=== PATIENT | male | born 1930 | race Caucasian/White ===

== ENCOUNTER 2016-05-12 11:16 | Outpatient (CLI) | payer MEDICARE | END 2016-05-12 23:59 | disposition home or self-care (01) | LOC: RAD 11:16 | PROVIDERS: ATTEND Legal Medicine | DX: J98.11 Atelectasis (principal); I70.0 Atherosclerosis of aorta | CPT/HCPCS: 71010-TC ==

== ENCOUNTER 2016-05-20 18:11 | Inpatient (IN) | payer MEDICARE ==
[~2016-05-20] VITALS: Ht 175.3 cm; Wt 65.8 kg
[2016-05-20 19:24] LABS: BASOPHILS % (AUTO) 0.2 % (0.0-2.0); DIFF TOTAL % 100 %; EOSINOPHILS # (AUTO) 0.1 /CMM (0.0-0.7); EOSINOPHILS % (AUTO) 1.7 % (0.0-6.0); HEMATOCRIT 36 % (39-51); HEMOGLOBIN 11.8 g/dL (13.5-17.5); LYMPHOCYTES # (AUTO) 1.5 /CMM (0.8-4.8); LYMPHOCYTES % (AUTO) 25.9 % (20.0-44.0); MEAN CORPUSCULAR HEMOGLOBIN 28 PG (26.0-33.0); MEAN CORPUSCULAR HGB CONC 33 g/dl (31.0-36.0); MEAN CORPUSCULAR VOLUME 85 fL (80-96); MONOCYTES # (AUTO) 0.5 /CMM (0.1-1.30); NEUTROPHILS # (AUTO) 3.8 /CMM (1.8-8.9); NEUTROPHILS % (AUTO) 63.2 % (43.0-81.0); PLATELET COUNT (AUTO) 179 /CMM (150-450); RED BLOOD CELL COUNT(AUTO) 4.23 MIL/uL (4.5-6.0); WHITE BLOOD COUNT (AUTO) 5.9 K/uL (4.3-11.0)
[2016-05-20 19:32] LABS: ANION GAP 10 (5-14); CALCIUM, SERUM 9.3 mg/dL (8.5-10.1); CARBON DIOXIDE 31 mmol/L (21-32); CHLORIDE 107 mmol/L (98-107); CREATININE 2.8 mg/dL (0.6-1.3); POTASSIUM 4.4 mmol/L (3.5-5.1); SODIUM SERUM 143 mmol/L (136-145); UREA NITROGEN, BLOOD 9 mg/dL (7-18)
[2016-05-20 19:34] LABS: GLUCOSE 96 mg/dL (74-106)
[2016-05-20 19:37] LABS: ALANINE AMINOTRANSFERASE 11 U/L (12-78); ALBUMIN 3.3 g/dL (3.4-5.0); ASPARTATE AMINOTRANSFERASE 17 U/L (15-37); BILIRUBIN,DIRECT 0.1 mg/dL (0.0-0.2); BILIRUBIN,TOTAL 0.4 mg/dL (0.2-1.0); INDIRECT BILIRUBIN 0.3 mg/dL (0.0-1.1); TOTAL PROTEIN, SERUM 6.4 g/dL (6.4-8.2)
[2016-05-20 19:38] LABS: ACETAMINOPHEN 0 ug/ml (10-30); SALICYLATE 1.4 mg/dL (2.8-20.0)
[2016-05-20] MEDS ORDERED: LORA0.5T PO (20:59)
[2016-05-20] MEDS ORDERED: OLAN5TAB3 PO (20:59)
[2016-05-20] MEDS ORDERED: QUET25TA PO (20:59)
[2016-05-20] MEDS ORDERED: TEMA15CA PO (20:59)
[2016-05-20 22:00] VITALS: BP 121/67
[2016-05-20 22:20] VITALS: BP 121/67
[2016-05-20] MEDS ORDERED: CLONIDINE HCL 0.1 MG TABLET PO PRN (23:00)
[2016-05-20] MEDS ORDERED: ONDANSETRON HCL/PF 4 MG/2 ML VIAL IV PRN (23:00)
[2016-05-20] MEDS: LEVOFLOXACIN 250 MG /D5W 50 ML 250 MG in PREMIX 1 EA IV SCH (23:00)
[2016-05-20] MEDS ORDERED: OLANZAPINE 5 MG TABLET PO SCH (23:00)
[2016-05-21] MEDS ORDERED: OLANZAPINE 5 MG TABLET ONE (01:24)
[2016-05-21] MEDS ORDERED: LEVOFLOXACIN 250 MG /D5W 50 ML 50 ML IV ONE (01:29)
[2016-05-21] MEDS ORDERED: IV SET PRIMARY PUMP SET 1 EA INFUS.SET MC ONE (01:34)
[2016-05-21] MEDS ORDERED: IV NS 0.9% 250 ML IV ONE (01:34)
[2016-05-21] MEDS ORDERED: SECONDARY IV SET 1 EA INFUS.SET MC ONE (01:34)
[2016-05-21] MEDS ORDERED: LORAZEPAM INJ 2 MG/ML VIAL ONE (03:13)
[2016-05-21] MEDS: LORAZEPAM INJ 2 MG/ML VIAL IV PRN ×3 (03:22→22:04)
[2016-05-21] MEDS ORDERED: METO25TA20 PO (07:26)
[2016-05-21 08:00] VITALS: BP 98/55
[2016-05-21 08:05] LABS: BASOPHILS % (AUTO) 0.3 % (0.0-2.0); DIFF TOTAL % 100 %; EOSINOPHILS # (AUTO) 0.1 /CMM (0.0-0.7); EOSINOPHILS % (AUTO) 1.2 % (0.0-6.0); HEMATOCRIT 38 % (39-51); HEMOGLOBIN 12.2 g/dL (13.5-17.5); LYMPHOCYTES # (AUTO) 1.1 /CMM (0.8-4.8); LYMPHOCYTES % (AUTO) 16.5 % (20.0-44.0); MEAN CORPUSCULAR HEMOGLOBIN 27 PG (26.0-33.0); MEAN CORPUSCULAR HGB CONC 32 g/dl (31.0-36.0); MEAN CORPUSCULAR VOLUME 86 fL (80-96); MONOCYTES # (AUTO) 0.7 /CMM (0.1-1.30); MONOCYTES % (AUTO) 9.8 % (2.0-12.0); NEUTROPHILS % (AUTO) 72.2 % (43.0-81.0); PLATELET COUNT (AUTO) 198 /CMM (150-450); RED BLOOD CELL COUNT(AUTO) 4.46 MIL/uL (4.5-6.0); WHITE BLOOD COUNT (AUTO) 6.9 K/uL (4.3-11.0)
[2016-05-21] MEDS: PANTOPRAZOLE 40 MG TABLET.DR PO SCH (08:13)
[2016-05-21] MEDS: ASPIRIN 81 MG TAB.CHEW PO SCH (08:13)
[2016-05-21 08:17] LABS: ANION GAP 13 (5-14); CALCIUM, SERUM 9.6 mg/dL (8.5-10.1); CARBON DIOXIDE 28 mmol/L (21-32); CHLORIDE 107 mmol/L (98-107); CREATININE 3.8 mg/dL (0.6-1.3); GLUCOSE 107 mg/dL (74-106); POTASSIUM 4.7 mmol/L (3.5-5.1); SODIUM SERUM 143 mmol/L (136-145); UREA NITROGEN, BLOOD 15 mg/dL (7-18)
[2016-05-21] MEDS: QUETIAPINE FUMARATE 25 MG TABLET PO SCH ×2 (08:45→17:19)
[2016-05-21] MEDS ORDERED: QUETIAPINE FUMARATE 25 MG TABLET PO SCH (09:00)
[2016-05-21] MEDS ORDERED: LORAZEPAM 0.5 MG TABLET PO PRN (09:00)
[2016-05-21] MEDS: TEMAZEPAM 15 MG CAPSULE PO SCH ×3 (10:06→22:00)
[2016-05-21] MEDS: METOPROLOL TARTRATE 25 MG TABLET PO SCH (10:07)
[2016-05-21 16:00] VITALS: BP 121/65
[2016-05-21 20:00] VITALS: BP 155/96
[2016-05-21 21:20] VITALS: BP_SYST 110; BP_SYST 155; BP_DIAS 48; BP_DIAS 96
[2016-05-21] MEDS: LEVOFLOXACIN 250 MG /D5W 50 ML 250 MG in PREMIX 1 EA IV SCH (21:54)
[2016-05-21] MEDS: OLANZAPINE 5 MG TABLET PO SCH ×2 (21:54→22:00)
[2016-05-21] MEDS ORDERED: TEMAZEPAM 15 MG CAPSULE PO SCH (22:00)
[2016-05-22 08:00] VITALS: BP 104/58
[2016-05-22] MEDS: METOPROLOL TARTRATE 25 MG TABLET PO SCH (08:23)
[2016-05-22] MEDS: PANTOPRAZOLE 40 MG TABLET.DR PO SCH (08:23)
[2016-05-22] MEDS: QUETIAPINE FUMARATE 25 MG TABLET PO SCH ×2 (08:23→17:39)
[2016-05-22] MEDS: ASPIRIN 81 MG TAB.CHEW PO SCH (08:23)
[2016-05-22] MEDS: LORAZEPAM INJ 2 MG/ML VIAL IV PRN ×2 (14:22→21:26)
[2016-05-22 16:00] VITALS: BP 120/68
[2016-05-22 20:00] VITALS: BP 130/72
[2016-05-22] MEDS: TEMAZEPAM 15 MG CAPSULE PO SCH (21:10)
[2016-05-22] MEDS: OLANZAPINE 5 MG TABLET PO SCH (21:43)
[2016-05-22] MEDS ORDERED: IV SET PRIMARY PUMP SET 1 EA INFUS.SET MC ONE (23:14)
[2016-05-22] MEDS: LEVOFLOXACIN 250 MG /D5W 50 ML 250 MG in PREMIX 1 EA IV SCH (23:29)
[2016-05-23 08:00] VITALS: BP 109/53
[2016-05-23] MEDS: PANTOPRAZOLE 40 MG TABLET.DR PO SCH (08:16)
[2016-05-23] MEDS: QUETIAPINE FUMARATE 25 MG TABLET PO SCH ×2 (08:16→16:18)
[2016-05-23] MEDS: ASPIRIN 81 MG TAB.CHEW PO SCH (08:16)
[2016-05-23] MEDS: METOPROLOL TARTRATE 25 MG TABLET PO SCH (08:24)
[2016-05-23 16:00] VITALS: BP 119/58
[2016-05-23] MEDS ORDERED: QUETIAPINE FUMARATE 25 MG TABLET PO PRN (18:30)
[2016-05-23 19:34] VITALS: BP 104/66
[2016-05-23] MEDS: TEMAZEPAM 15 MG CAPSULE PO SCH (21:36)
[2016-05-23] MEDS: OLANZAPINE 5 MG TABLET PO SCH (21:36)
[2016-05-23] MEDS: LEVOFLOXACIN 250 MG /D5W 50 ML 250 MG in PREMIX 1 EA IV SCH (23:03)
[2016-05-24 06:43] LABS: BASOPHILS % (AUTO) 0.4 % (0.0-2.0); DIFF TOTAL % 100 %; EOSINOPHILS # (AUTO) 0.1 /CMM (0.0-0.7); EOSINOPHILS % (AUTO) 1.4 % (0.0-6.0); HEMATOCRIT 37 % (39-51); LYMPHOCYTES # (AUTO) 1.3 /CMM (0.8-4.8); LYMPHOCYTES % (AUTO) 19.8 % (20.0-44.0); MEAN CORPUSCULAR HEMOGLOBIN 27 PG (26.0-33.0); MEAN CORPUSCULAR HGB CONC 32 g/dl (31.0-36.0); MEAN CORPUSCULAR VOLUME 85 fL (80-96); MONOCYTES % (AUTO) 14.8 % (2.0-12.0); NEUTROPHILS # (AUTO) 4.3 /CMM (1.8-8.9); NEUTROPHILS % (AUTO) 63.6 % (43.0-81.0); PLATELET COUNT (AUTO) 196 /CMM (150-450); RED BLOOD CELL COUNT(AUTO) 4.37 MIL/uL (4.5-6.0); WHITE BLOOD COUNT (AUTO) 6.8 K/uL (4.3-11.0)
[2016-05-24 06:58] LABS: CALCIUM, SERUM 9.3 mg/dL (8.5-10.1); CREATININE 6.5 mg/dL (0.6-1.3); PHOSPHORUS 5.3 mg/dL (2.5-4.9); POTASSIUM 4.7 mmol/L (3.5-5.1)
[2016-05-24 08:00] VITALS: BP 126/63
[2016-05-24] MEDS: PANTOPRAZOLE 40 MG TABLET.DR PO SCH (08:31)
[2016-05-24] MEDS: QUETIAPINE FUMARATE 25 MG TABLET PO SCH ×2 (08:31→17:13)
[2016-05-24] MEDS: METOPROLOL TARTRATE 25 MG TABLET PO SCH (08:31)
[2016-05-24] MEDS: ASPIRIN 81 MG TAB.CHEW PO SCH (08:31)
[2016-05-24 16:00] VITALS: BP 151/68
[2016-05-24 19:00] VITALS: BP 125/67
[2016-05-24] MEDS: OLANZAPINE 5 MG TABLET PO SCH (22:33)
[2016-05-24] MEDS: LEVOFLOXACIN 250 MG /D5W 50 ML 250 MG in PREMIX 1 EA IV SCH (22:33)
[2016-05-24] MEDS: TEMAZEPAM 15 MG CAPSULE PO SCH (22:33)
[2016-05-25 08:00] VITALS: BP 130/62
[2016-05-25] MEDS: METOPROLOL TARTRATE 25 MG TABLET PO SCH (08:06)
[2016-05-25] MEDS: ASPIRIN 81 MG TAB.CHEW PO SCH (08:06)
[2016-05-25] MEDS: ACETAMINOPHEN 325 MG TABLET PO PRN ×2 (08:06→22:44)
[2016-05-25] MEDS: QUETIAPINE FUMARATE 25 MG TABLET PO SCH ×3 (08:06→22:31)
[2016-05-25] MEDS: PANTOPRAZOLE 40 MG TABLET.DR PO SCH (08:06)
[2016-05-25 16:00] VITALS: BP 125/67
[2016-05-25 20:00] VITALS: BP 109/62
[2016-05-25] MEDS: TEMAZEPAM 15 MG CAPSULE PO SCH (22:30)
[2016-05-25] MEDS: LEVOFLOXACIN (250MG) 250 MG TABLET PO SCH (22:31)
[2016-05-26 08:00] VITALS: BP 130/62
[2016-05-26] MEDS: ASPIRIN 81 MG TAB.CHEW PO SCH (08:15)
[2016-05-26] MEDS: METOPROLOL TARTRATE 25 MG TABLET PO SCH (08:15)
[2016-05-26] MEDS: PANTOPRAZOLE 40 MG TABLET.DR PO SCH (08:16)
[2016-05-26] MEDS: QUETIAPINE FUMARATE 25 MG TABLET PO SCH ×3 (08:16→21:32)
[2016-05-26 13:45] VITALS: BP 86/39
[2016-05-26] MEDS ORDERED: ALBUMIN 25% 25 GM in PREMIX 1 EA IV PRN (14:00)
[2016-05-26 14:30] VITALS: BP 90/48
[2016-05-26 16:00] VITALS: BP 115/57
[2016-05-26 20:00] VITALS: BP 121/70
[2016-05-26] MEDS: TEMAZEPAM 15 MG CAPSULE PO SCH (21:32)
[2016-05-26] MEDS: LEVOFLOXACIN (250MG) 250 MG TABLET PO SCH (21:33)
[2016-05-27 08:00] VITALS: BP 122/74
[2016-05-27] MEDS: PANTOPRAZOLE 40 MG TABLET.DR PO SCH (08:30)
[2016-05-27] MEDS: ASPIRIN 81 MG TAB.CHEW PO SCH (08:30)
[2016-05-27] MEDS: QUETIAPINE FUMARATE 25 MG TABLET PO SCH ×2 (08:31→17:25)
[2016-05-27] MEDS: METOPROLOL TARTRATE 25 MG TABLET PO SCH (08:32)
[2016-05-27] MEDS: ACETAMINOPHEN 325 MG TABLET PO PRN (11:15)
[2016-05-27 16:00] VITALS: BP 122/74
[2016-05-27 18:00] VITALS: BP 122/72
== END 2016-05-27 18:00 | disposition home or self-care (01) | DRG 193 ==
LOC: ER 18:14 → MED 21:54
PROVIDERS: ADMIT Legal Medicine; ATTEND Legal Medicine
PROC: 5A1D60Z (ICD-10-PCS; principal; 2016-05-22)
DX: J15.9 Unspecified bacterial pneumonia (principal); N18.6 End stage renal disease; G93.40 Encephalopathy, unspecified; I12.0 Hypertensive chronic kidney disease with stage 5 chronic kidney disease or end stage renal disease; F05 Delirium due to known physiological condition; Z99.2 Dependence on renal dialysis; E11.22 Type 2 diabetes mellitus with diabetic chronic kidney disease; G30.9 Alzheimer's disease, unspecified; F02.80 Dementia in other diseases classified elsewhere, unspecified severity, without behavioral disturbance, psychotic disturbance, mood disturbance, and anxiety; D64.9 Anemia, unspecified; F29 Unspecified psychosis not due to a substance or known physiological condition; N40.0 Benign prostatic hyperplasia without lower urinary tract symptoms; W19.XXXA Unspecified fall, initial encounter; Y93.9 Activity, unspecified; Y92.009 Unspecified place in unspecified non-institutional (private) residence as the place of occurrence of the external cause; Y99.9 Unspecified external cause status; H35.30 Unspecified macular degeneration; E83.9 Disorder of mineral metabolism, unspecified
CPT/HCPCS: 36415; 70450-TC; 71010-TC; 80048-TC; 80076-TC; 82140-TC; 83735-TC; 84100-TC; 85025-TC; 87081-TC; 90935-TC; 97001-TC; 97110-TC; 97112-TC; 97530-TC; A4216; A4606; G0480; G6039-TC; J1956; J2060; J7050; P9047; Z7610